=== PATIENT | female | born 1970 | race Caucasian/White ===

== ENCOUNTER 2024-11-08 07:52 | Observation (INO) ==
[~2024-11-08 07:52] MED LIST: Naloxone 0.4 mg VIAL 0.4 mg/ml 1 ml VIAL IV PRN
[2024-11-08] MEDS ORDERED: Chlorhexidine MOUTHWASH 0.12% 15 ML UDC ONE (08:18)
[2024-11-08] MEDS ORDERED: ceFAZolin 2 GM PREMIX 2 GM/50 ML BAG ONE (08:18)
[2024-11-08] MEDS ORDERED: Famotidine IV 10 MG/ML 2 ml VIAL (20 mg) ONE (08:18)
[2024-11-08] MEDS ORDERED: Midazolam 2 mg/2 ml VIAL 1 mg/ml 2 ml VIAL (2 mg) ONE (08:26)
[2024-11-08] MEDS ORDERED: fentaNYL 100 mcg/2 ml 50 MCG/ML VIAL ONE ×3 (08:26→13:02)
[2024-11-08] MEDS ORDERED: Rocuronium 50 mg VIAL 10 mg/ml 5 ml VIAL (50 mg) ONE ×2 (08:26→11:35)
[2024-11-08] MEDS ORDERED: Propofol 10 MG/ML 20 ML BTL ONE ×3 (08:26→12:05)
[2024-11-08] MEDS ORDERED: Lidocaine 2% PF 5 ML VIAL ONE (08:26)
[2024-11-08 08:35] LABS: Rapid COVID-19 Molecular Undetected (Undetected)
[2024-11-08] MEDS: Famotidine IV 10 MG/ML 2 ml VIAL (20 mg) IV ONE (08:38)
[2024-11-08] MEDS: Buffered Lidocaine 1% SYRIN 1 ml INTRADERM ONE (08:39)
[2024-11-08] MEDS: Lactated Ringers 1000 ml BAG 1,000 ML IV SCH ×2 (08:39→15:00)
[2024-11-08] MEDS ORDERED: Lidocaine 1% w EPI 1:100,000 MDV 50 ML VIAL ONE (10:30)
[2024-11-08] MEDS ORDERED: ceFAZolin VIAL VIAL ONE (10:31)
[2024-11-08] MEDS ORDERED: Thrombin 5,000 UNITS 1 APPLIC KIT - topical use - TOPICAL ONE (10:31)
[2024-11-08] MEDS ORDERED: Ondansetron 4 mg VIAL 2 MG/ML 2 ml VIAL ONE ×2 (11:22→13:33)
[2024-11-08] MEDS ORDERED: Dexamethasone IV 4 MG/ML VIAL 1 ml VIAL ONE (11:22)
[2024-11-08] MEDS ORDERED: Phenylephrine IV 10 MG/ML 1 ml VIAL ONE (11:51)
[2024-11-08] MEDS ORDERED: Dextran 70/Hypromellose Tears Eye Drops 15 ml BTL (for Artificials Tears) BOTH EYES PRN (12:34)
[2024-11-08] MEDS ORDERED: Benzocaine/Menthol LOZ MT PRN (12:34)
[2024-11-08] MEDS ORDERED: Senna TAB 8.6 mg TAB PO PRN (12:34)
[2024-11-08] MEDS ORDERED: Morphine 2 MG/ML SYRINGE IV PRN (12:34)
[2024-11-08] MEDS ORDERED: Calcium Carb (TUMS) 500 mg CHEW TAB PO PRN (12:34)
[2024-11-08] MEDS ORDERED: Magnesium Hydroxide LIQ 30 ML UDC PO PRN (12:34)
[2024-11-08] MEDS ORDERED: Phenol 1.4% Throat Spray BTL MT PRN (12:34)
[2024-11-08] MEDS: fentaNYL 100 mcg/2 ml 50 MCG/ML VIAL IV PRN (13:04)
[2024-11-08] MEDS: Ondansetron 4 mg VIAL 2 MG/ML 2 ml VIAL IV PRN ×2 (13:34→19:04)
[2024-11-08] MEDS: HYDROcodone/ACETAMIN 5/325 mg TAB PO PRN (17:48)
[2024-11-08] MEDS: Scopolamine 1 mg/72hr PATCH TRANSDERM SCH (18:03)
[2024-11-09 09:51] VITALS: BP 92/57
== END 2024-11-09 13:00 | disposition home or self-care (01) ==
LOC: OR 07:52 → SSU 07:52
PROVIDERS: ADMIT Neurological Surgery; ATTEND Neurological Surgery